=== PATIENT | female | born 1940 | race Caucasian/White ===

== ENCOUNTER 2017-11-25 07:44 | Outpatient (CLI) | payer MEDICARE, OTHER ==
--- NOTE | 2017-11-25 10:49 | PET ---
PET SCAN DEMENTIA PET BRAIN SCAN CT HEAD NONCONTRAST: INDICATION: Alzheimer's disease with early onset. RADIOPHARMACEUTICAL: 8.7 mCi [id number], IV. FINDINGS: Scintigraphic imaging of the brain reveals grossly symmetric metabolic activity without significant a reas of reduced radiotracer uptake identified. CT brain, noncontrast, imaging reveals mild prominence of the ventricular system. This is slightly ou t of proportion to size of the cerebral sulci. There is no midline shift or mass effect otherwise dep icted. IMPRESSION: 1. There is no gross asymmetry with regard to metabolic activity of the brain. 2. There is mild prominence of the ventricular system, which is out of proportion to size of the cer ebral sulci. Therefore, entities such as normal pressure hydrocephalus should be excluded clinically. POS: [facility]
== END 2017-11-25 07:45 | disposition home or self-care (01) ==
LOC: PET 07:44
PROVIDERS: ATTEND Psychiatry & Neurology Neurology
DX: G30.0 Alzheimer's disease with early onset (principal)
CPT/HCPCS: 78608; A9552

== ENCOUNTER 2018-04-11 10:11 | Outpatient (CLI) | payer MEDICARE, OTHER ==
--- NOTE | 2018-04-11 11:49 | BD ---
BONE DENSITOMETRY USING DEXA: Date: 04/11/18 HISTORY: Postmenopausal screening for osteoporosis. FINDINGS: Lumbar Spine: BMD (g/cm2) L1 0.861 T-Score: -1.2 Z-Score: 1.2 L2 1.003 T-Score: -0.2 Z-Score: 2.4 L3 1.118 T-Score: 0.3 Z-Score: 3.1 L4 1.163 T-Score: 0.9 Z-Score: 3.8 L1-L4 1.051 T-Score: 0.0 Z-Score: 2.7 Femoral Neck: 0.653 T-Score: -1.8 Z-Score: 0.5 Total Femur: 0.887 T-Score: -0.5 Z-Score: 1.6 IMPRESSION: Osteopenia. POS: [facility]
== END 2018-04-11 10:12 | disposition home or self-care (01) ==
LOC: BICMAMMO 10:11
PROVIDERS: ATTEND Family Medicine
DX: M85.89 Other specified disorders of bone density and structure, multiple sites (principal)
CPT/HCPCS: 77080